=== PATIENT | male | born 1955 | race Caucasian/White ===

== ENCOUNTER 2016-11-15 11:20 | Emergency (ER) | payer OTHER, MEDICAID ==
[2016-11-15 11:32] VITALS: BMI 26.6
--- NOTE | 2016-11-15 11:43 | DR.GENAD ---
HPI - PCP Primary Care Physician: lee santos - HPI Comment HPI Comment: WOKE UP THIS AM AND TOOK HIS BLOOD PRESSURE MED. BLOOD PRESSURE ELEVATED STILL. TOOK 1/2 PILL OF HIS METOPROLOL. BP STILL ELEVATED AND WAS ELEVATED IN ED ALSO. LOWER BACK PAIN, CHRONIC, SLIGHTLY WORSE TODAY.SLIGHT HEADACHE PRESENT. - Complaint/Symptoms Chief Complaint Doctors Comments: ELEVATED BLOOD PRESSURE. Chief Complaint:: patient stated he woke up and took half of his bp med cause of his bp being high. 1 hour later he took another half. he stated his bp at home was 197/100 - Nurses notes reviewed Nurses Notes Review: Yes - Source History Provided: Patient - Mode of Arrival Mode of Arrival: Ambulatory - Timing Onset of Chief Complaint: 11/15/16 Came on: Suddenly - Duration Duration: Constant Duration: Hours - Severity Severity: Moderate PMH - PMH Past Medical History: Yes Past Medical History: Coronary Artery Disease, Dyslipidemia, GERD, Hypertension Past Surgical History: Yes Surgical History: CABG/Valve Surgery, Cholecystectomy - Family History History of Family Medical Conditions: Yes Family Medical History: Diabetes Mellitus, Cancer, [place], Coronary Artery Disease, Hypertension - Social History Does patient currently use any type of tobacco product: No Have you used tobacco products in the last 12 months: No Type of Tobacco Use: None Does any household member use tobacco: Yes Alcohol Use: Rarely Do you use any recreational Drugs:: No Lives With: Family Lives Where: Home - infectious screening In the last 2 months have you had wt loss of >10#?: NO Have you had fever, night sweats or hemotysis?: No Have you traveled outside the country in the last 6 months?: No Isolation: Standard ROS - Review of Systems Constitutional: No Symptoms Reported Eyes: No Symptoms Reported ENTM: Nose Discharge, Nose Congestion. negative: Ear Pain, Throat Pain Respiratoy: Non-Productive Cough Cardiovascular: No Symptoms Reported Gastrointestinal/Abdominal: No Symptoms Reported Genitourinary: No Symptoms Reported Neurological: Headache Musculoskeletal: Back Pain Integumentary: No Symptoms Reported Hematologic/Lymphatic: No Symptoms Reported Endocrine: No Symptoms Reported All Other Systems: Reviewed and Negative PE - Vital Signs Vitals: Temperature 98.6 F Pulse Rate [Right Brachial] 61 Pulse Rate 67 Respiratory Rate 20 Blood Pressure [Right Arm] 147/83 Blood Pressure 177/103 O2 Sat by Pulse Oximetry 100 - General Limitations: No Limitations General Appearance: Alert - Head Head Exam: Normal Inspection - Eyes Eye exam: Normal Appearance - ENT ENT Exam: Normal External Ear Exam External Ear Exam: Normal External Inspection TM/Canal Exam: Bilateral Normal Nose Exam: Normal Nose Exam Mouth Exam: Normal Inspection Throat Exam: Normal Inspection - Neck Neck Exam: Trachea Midline - Chest Chest Inspection: Symmetric Chest Wall Rise - Respiratory Respiratory Exam: Normal Lung Sounds Bilat Respiratory Exam: Bilateral Clear to Auscultation - Cardiovascular Cardiovascular Exam: Regular Rate, Normal Rhythm, Normal Heart Sounds - Abdominal Exam Abdominal Exam: Normal Inspection - Extremities Extremities Exam: Normal Inspection - Back Back Exam: Paraspinal Tenderness - Neurologic Neurological Exam: Alert, Oriented X3 - Psychiatric Psychiatric Exam: Anxious - Skin Skin Exam: Normal Color MDM - Differential Diagnosis Differential Diagnosis: HYPERTENSION Course - Treatment Treatment: SEE ORDERS - Reevaluation 1st: Improved (IMPROVE WITH MEDS IN ED.) - Education/Counseling Education/Counseling: Patient, Education Educated On: Treatment, Diagnosis, Needs for Follow Up - Diagnosis Discharge Problem: Hypertension Qualifiers: Hypertension type: essential hypertension Qualified Code(s): I10 - Essential ( primary) hypertension - Discharge Plan Disposition: 01 HOME, SELF-CARE Condition: Stable Prescriptions: Clonidine HCl [CATAPRES 0.1 MG TAB *] 0.1 mg PO BID PRN #10 tab PRN Reason: Hypertension - Follow ups/Referrals Follow ups/Referrals: Lee Santos [Primary Care Provider] - 11/17/16 - Instructions Instructions: Hypertension Additional Instructions: RETURN TO ED IF WORSE.
[2016-11-15] MEDS ORDERED: TORADOL 60 MG VIAL IM ONE (11:52)
[2016-11-15] MEDS ORDERED: TORADOL 60 MG VIAL ONE (11:57)
[2016-11-15] MEDS ORDERED: NIFEDIPINE CAP 10 MG PO ONE (13:14)
[2016-11-15 14:14] VITALS: BP 147/83
== END 2016-11-15 14:19 | disposition home or self-care (01) ==
LOC: ER 11:20
DX: I10 Essential (primary) hypertension (principal)
CPT/HCPCS: 96372; 99282; J1885

== ENCOUNTER → 2016-11-24 | Outpatient (CLI) | payer OTHER, MEDICAID ==
[2016-11-15 14:14] VITALS: BP 147/83
--- NOTE | 2016-11-24 18:04 | CT ---
STUDY: CT PARANASAL SINUSES WITHOUT CONTRAST HISTORY: Chronic maxillary sinusitis. Headaches for 6 weeks. Comparison: None. Technique: Multiple axial images of the paranasal sinuses were obtained without the administration o f IV contrast. Coronal and sagittal reformats were performed and reviewed. Automated exposure contr ol (AEC) was utilized to adjust the MA and/or kV. Findings: Axial images: There is mild mucosal thickening in both maxillary sinuses. There is mild mucosal thic kening in several ethmoid air cells and in the frontal recesses bilaterally. The frontal sinus and s phenoid sinus are predominately clear. No air-fluid levels are identified. There is no evidence of o steoneogenesis. The retro antral fat is clear. The nasal cavity is within normal limits. There is na viji septal spur to the right. The nasal bone is intact. Reformatted images: The ethmoid roofs are symmetric. The lamina papyracea is intact bilaterally. The re is no evidence of orbital blowout. The ostiomeatal units are predominantly clear. The patient is edentulous. Mastoid air cells and middle ear cavities are predominately clear. IMPRESSION: 1. Mild mucosal thickening in the maxillary sinuses as described. No evidence of acute sinusitis at this time. 2. Normal appearing mastoid air cells and middle ear cavities bilaterally. Reported By:
== END ==
LOC: RAD 14:50
PROVIDERS: ATTEND Psychiatry & Neurology Neurology
DX: J32.0 Chronic maxillary sinusitis (principal)
CPT/HCPCS: 70486

== ENCOUNTER → 2017-01-21 | Outpatient (CLI) | payer OTHER, MEDICAID ==
[~2017-01-21] MED LIST: NS 250 ML IV 250 ML IV ONE
[2017-01-21 09:21] LABS: CREATININE 1.28 mg/dL (0.70-1.30)
--- NOTE | 2017-01-22 11:21 | CT ---
HISTORY: Carotid atherosclerosis Study: CT angiography of the head Comparison: Sinus CT 11/24/2016 Technique: Multiple axial images of the head obtained before and after the administration of IV contrast using CTA protocol. 3D reconstructions were performed utilizing radial maximum intensity projection imagi ng.Dose reduction techniques including Automated Exposure Control (AEC) and adjustment of mA and kV were utilized. Findings: Non contrasted CT exam demonstrates normal appearance of the brain parenchyma for patient's age with out acute hemorrhage, mass, midline shift or abnormal extra-axial fluid collection. The ventricles a re normal. CTA phase of the exam shows no evidence of significant arterial stenosis or aneurysm. The re are 2 developmental venous anomalies (venous angiomas) present in the right frontal lobe seen on axial image 20, coronal image 16, and sagittal images 31 and 33. No arterial vascular malformation i s seen. There is a origin to the right posterior cerebral artery. Vertebrobasilar system appea rs normal. Partially visualized atherosclerotic plaque is seen in distal ICAs bilaterally. The carotid bifurcat ions were not imaged . There is scattered plaque in the cavernous carotid segments without high-grad e stenosis or aneurysm identified. The soft tissues and osseous structures are unremarkable. The vis ualized paranasal sinuses are clear. IMPRESSION: 1. No evidence of aneurysm or significant intracranial stenosis. 2. 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 Reported By:
== END ==
LOC: RAD 08:39
PROVIDERS: ATTEND Psychiatry & Neurology Neurology
DX: I65.23 Occlusion and stenosis of bilateral carotid arteries (principal)
CPT/HCPCS: 36415; 70496; 82565; 84520; A4222

== ENCOUNTER 2017-11-29 09:29 | Emergency (ER) | payer OTHER, MEDICAID ==
[2017-11-29] MEDS ORDERED: LOPRESSOR INJ 5 MG AMP ONE (09:47)
[2017-11-29] MEDS ORDERED: NITROSTAT SL ONE (09:48)
[2017-11-29] MEDS ORDERED: NITROSTAT SL PRN (09:52)
[2017-11-29] MEDS ORDERED: LOPRESSOR INJ 5 MG AMP IVP ONE (09:52)
[2017-11-29] MEDS ORDERED: NS 1000 ML 1,000 ML ONE (10:00)
[2017-11-29 10:01] LABS: BASOPHILS % (AUTO) 0.7 % (0.2-1.0); EOSINOPHILS # (AUTO) 0.1 x10^3/uL (0.0-0.2); HEMATOCRIT 40.2 % (42.0-54.0); HEMOGLOBIN 13.9 g/dL (13.5-18.0); LYMPHOCYTES # (AUTO) 2.3 X10^3/uL (1.3-2.9); LYMPHOCYTES % (AUTO) 32.5 % (21.0-51.0); MEAN CORPUSCULAR HEMOGLOBIN 30.7 pg (27.0-34.0); MEAN CORPUSCULAR HGB CONC 34.6 g/dL (33.0-35.0); MEAN CORPUSCULAR VOLUME 88.8 fL (80.0-100.0); MEAN PLATELET VOLUME 6.7 fL (7.4-11.0); MONOCYTES # (AUTO) 0.5 x10^3/uL (0.3-0.8); MONOCYTES % (AUTO) 6.6 % (0.0-13.0); NEUTROPHILS # (AUTO) 4.2 x10^3/uL (2.2-4.8); NEUTROPHILS % (AUTO) 59.2 % (42.0-75.0); PLATELET COUNT 288 X10^3/uL (150.0-450.0); RED BLOOD COUNT 4.52 X10^6/uL (4.7-6.0); RED CELL DISTRIBUTION WIDTH 13.5 % (11.6-16.5); WHITE BLOOD COUNT 7.1 X10^3/uL (3.6-10.0)
--- NOTE | 2017-11-29 10:01 | DR.GENAD ---
HPI - PCP Primary Care Physician: Aris - Complaint/Symptoms Chief Complaint Doctors Comments: Chesst pain onset about 4 hrs. ago. It described this as feeling like ingestion. He some some Pepto and rested. LOCATION WAS IN THE CETER OF THE CHEST WITH RADIATION TO HIS LEFT SHOULDER. There was no SOB, diaphoresis, nausea or vommiting. He also had aken 2 baby Aspirins. Chief Complaint:: "chest pain since this morning hurting in chest and down left side" - Nurses notes reviewed Nurses Notes Review: Yes - Source History Provided: Patient - Mode of Arrival Mode of Arrival: Ambulatory - Timing Onset of Chief Complaint: 11/29/17 PMH - PMH Past Medical History: Yes Past Medical History: Coronary Artery Disease, Dyslipidemia, GERD, Hypertension Past Surgical History: Yes Surgical History: CABG/Valve Surgery, Cholecystectomy - Family History History of Family Medical Conditions: Yes Family Medical History: Diabetes Mellitus, Cancer, [place], Coronary Artery Disease, Hypertension - Social History Does patient currently use any type of tobacco product: No Have you used tobacco products in the last 12 months: No Type of Tobacco Use: None Does any household member use tobacco: No Alcohol Use: None Do you use any recreational Drugs:: No Lives With: Family Lives Where: Home - infectious screening In the last 2 months have you had wt loss of >10#?: NO Have you had fever, night sweats or hemotysis?: No Have you traveled outside the country in the last 6 months?: No Isolation: Standard ROS - Review of Systems Constitutional: No Symptoms Reported Eyes: No Symptoms Reported ENTM: No Symptoms Reported Respiratoy: No Symptoms Reported Cardiovascular: Chest Pain. negative: No Symptoms Reported, Edema, Palpitations , Syncope, Cyanosis, Skin Mottling Gastrointestinal/Abdominal: No Symptoms Reported Genitourinary: No Symptoms Reported Neurological: No Symptoms Reported Musculoskeletal: No Symptoms Reported Integumentary: No Symptoms Reported Hematologic/Lymphatic: No Symptoms Reported Endocrine: No Symptoms Reported Psychiatric: No Symptoms Reported All Other Systems: Reviewed and Negative PE - Vital Signs Vitals: Temperature 98 F Pulse Rate [Left Radial] 55 Pulse Rate 66 Respiratory Rate 18 Blood Pressure [Right Arm] 120/74 Blood Pressure 176/98 O2 Sat by Pulse Oximetry 100 - General Limitations: No Limitations General Appearance: Alert, In No Apparent Distress - Head Head Exam: Normal Inspection - Eyes Eye exam: Normal Appearance - ENT ENT Exam: Normal Exam Nose Exam: Normal Nose Exam Mouth Exam: Normal Inspection - Neck Neck Exam: Normal Inspection - Chest Chest Inspection: Normal Inspection, Symmetric Chest Wall Rise - Respiratory Respiratory Exam: Normal Lung Sounds Bilat - Cardiovascular Cardiovascular Exam: Regular Rate, Normal Rhythm, +S1, +S2 - Abdominal Exam Abdominal Exam: Normal Inspection, Normal Bowel Sounds, Soft - Extremities Extremities Exam: Normal Inspection - Back Back Exam: Normal Inspection - Neurologic Neurological Exam: Alert, Oriented X3 - Psychiatric Psychiatric Exam: Normal Affect, Normal Mood - Skin Skin Exam: Warm, Dry, Intact, Normal Color Course - Reevaluation 1st: Improved 2nd: Improved 3rd: Resolved - Education/Counseling Education/Counseling: Patient, Family, Education, Counseling Educated On: Treatment, Diagnosis, Prognosis, Needs for Follow Up ROR - Labs Reviewed Result Diagrams: 11/29/17 09:49 11/29/17 09:49 Laboratory: WBC 7.1 X10^3/uL (3.6-10.0) 11/29/17 09:49 RBC 4.52 X10^6/uL (4.7-6.0) L 11/29/17 09:49 Hgb 13.9 g/dL (13.5-18.0) 11/29/17 09:49 Hct 40.2 % (42.0-54.0) L 11/29/17 09:49 MCV 88.8 fL (80.0-100.0) 11/29/17 09:49 MCH 30.7 pg (27.0-34.0) 11/29/17 09:49 MCHC 34.6 g/dL (33.0-35.0) 11/29/17 09:49 RDW 13.5 % (11.6-16.5) 11/29/17 09:49 Plt Count 288 X10^3/uL (150.0-450.0) 11/29/17 09:49 MPV 6.7 fL (7.4-11.0) L 11/29/17 09:49 Neut % (Auto) 59.2 % (42.0-75.0) 11/29/17 09:49 Lymph % (Auto) 32.5 % (21.0-51.0) 11/29/17 09:49 Grainger % (Auto) 6.6 % (0.0-13.0) 11/29/17 09:49 Eos % (Auto) 1.0 % (0.9-2.9) 11/29/17 09:49 Baso % (Auto) 0.7 % (0.2-1.0) 11/29/17 09:49 Neut # (Auto) 4.2 x10^3/uL (2.2-4.8) 11/29/17 09:49 Lymph # (Auto) 2.3 X10^3/uL (1.3-2.9) 11/29/17 09:49 Grainger # (Auto) 0.5 x10^3/uL (0.3-0.8) 11/29/17 09:49 Eos # (Auto) 0.1 x10^3/uL (0.0-0.2) 11/29/17 09:49 Baso # (Auto) 0.0 X10^3/uL (0.0-0.1) 11/29/17 09:49 Absolute Nucleated RBC 0.0 /100WBC 11/29/17 09:49 INR Target Range - 11/29/17 09:49 INR 1.00 (0.8-1.3) 11/29/17 09:49 APTT 38.0 SECONDS (22.9-36.5) H 11/29/17 09:49 PTT Comment - 11/29/17 09:49 D-Dimer 328 ng/mL (0-400) 11/29/17 09:49 Sodium 137 mmol/L (136-145) 11/29/17 09:49 Corrected Sodium 137 mmol/L (136-145) 11/29/17 09:49 Potassium 3.7 mmol/L (3.5-5.1) 11/29/17 09:49 Chloride 104 mmol/L (98-107) 11/29/17 09:49 Carbon Dioxide 23.9 mmol/L (21-32) 11/29/17 09:49 BUN 12 mg/dL (7-18) 11/29/17 09:49 Creatinine 1.33 mg/dL (0.70-1.30) H 11/29/17 09:49 Est GFR (MDRD) Af Amer > 60 (>60) 11/29/17 09:49 Est GFR (MDRD) Non-Af 58 (>60) L 11/29/17 09:49 Glucose 119 mg/dL (65-99) H 11/29/17 09:49 Calcium 9.7 mg/dL (8.5-10.1) 11/29/17 09:49 Corrected Calcium TNP 11/29/17 09:49 Magnesium 2.4 mg/dL (1.7-2.9) 11/29/17 09:49 Total Bilirubin 0.60 mg/dL (0.2-1.0) 11/29/17 09:49 AST 36 Units/L (15-37) 11/29/17 09:49 ALT 43 Units/L (12-78) 11/29/17 09:49 Alkaline Phosphatase 116 Units/L (46-116) 11/29/17 09:49 Creatine Kinase 266 Units/L (39-308) 11/29/17 09:49 CK-MB (CK-2) 3.3 ng/mL (0-4.0) 11/29/17 09:49 CK/CKMB % Calc 1.2 % (<4) 11/29/17 09:49 Troponin I 0.28 ng/mL (0-1.5) 11/29/17 09:49 B-Natriuretic Peptide 55.7 pg/mL (0-79) 11/29/17 09:49 Total Protein 8.2 g/dL (6.4-8.2) 11/29/17 09:49 Albumin 4.1 g/dL (3.4-5.0) 11/29/17 09:49 Globulin 4.1 g/dL (2.5-4.5) 11/29/17 09:49 Albumin/Globulin Ratio 1.0 Ratio (1.1-2.1) L 11/29/17 09:49 H. pylori IgG Antibody Negative (NEGATIVE) 11/29/17 09:49 - XRAY XRAY Interpreted by: Self (CXR: NAD) - EKG Rate: 84 [place]: Normal Rhythm: NSR Block: None Hypertrophy: None ST: Normal - Diagnosis Discharge Problem: Chest pain - Discharge Plan Disposition: ADMITTED INPATIENT Condition: Stable - Follow ups/Referrals Follow ups/Referrals: NFD,None [Primary Care Provider] - 3 days - Instructions Instructions: Acute Pain, Adult
--- NOTE | 2017-11-29 10:05 | RAD ---
Indication: Chest pain Exam: Portable chest Comparison: 08/25/2014 Findings: The heart is normal. The pulmonary vessels are normal. The lungs are mildly hyperinflated. Postop changes are seen along the mediastinum and sternum. No consolidation or effusion is seen. Ther e is overlying EKG lead artifact. Impression: Overlying EKG lead artifact otherwise, stable with no acute abnormality seen. Reported By:
[2017-11-29] MEDS: NS 1000 ML 1,000 ML IV SCH ×3 (10:07→20:15)
[2017-11-29 10:14] LABS: B-TYPE NATRIURETIC PEPTIDE 55.7 pg/mL (0-79)
[2017-11-29 10:17] LABS: BLOOD UREA NITROGEN 12 mg/dL (7-18); CALCIUM 9.7 mg/dL (8.5-10.1); CARBON DIOXIDE 23.9 mmol/L (21-32); CHLORIDE 104 mmol/L (98-107); COR NA(FOR HYPERGLY) 137 mmol/L (136-145); CREATININE 1.33 mg/dL (0.70-1.30); SODIUM 137 mmol/L (136-145); TROPONIN I 0.28 ng/mL (0-1.5); eGFR BLACK RACES > 60 (>60); eGFR NON BLACK RACES 58 (>60)
[2017-11-29 10:21] LABS: ALANINE AMINOTRANSFERASE 43 Units/L (12-78); ALBUMIN 4.1 g/dL (3.4-5.0); ALKALINE PHOSPHATASE 116 Units/L (46-116); ASPARTATE AMINO TRANSFERASE 36 Units/L (15-37); CKMB % 1.2 % (<4); CREATINE KINASE 266 Units/L (39-308); CREATINE KINASE MB 3.3 ng/mL (0-4.0); MAGNESIUM 2.4 mg/dL (1.7-2.9); TOTAL PROTEIN 8.2 g/dL (6.4-8.2)
[2017-11-29] MEDS ORDERED: ASPIRIN 81 MG CHEWTAB ONE (11:21)
[2017-11-29] MEDS ORDERED: HEPARIN SODIUM IN D5W 25,000 UNITS/500 ML BAG IV PRN (11:22)
[2017-11-29] MEDS ORDERED: ASPIRIN 81 MG CHEWTAB PO ONE (11:45)
[2017-11-29] MEDS ORDERED: PLAVIX PO SCH (12:00)
[2017-11-29] MEDS ORDERED: HEPARIN SODIUM INJ 5000 UNITS IVP ONE (12:35)
[2017-11-29 13:23] VITALS: BMI 25.8
[2017-11-29] MEDS: MORPHINE SULFATE INJ 2 MG INJ IVP PRN ×2 (14:25→18:10)
[2017-11-29 16:32] LABS: TROPONIN I 0.4 ng/mL (0-1.5)
[2017-11-29 16:34] LABS: CREATINE KINASE MB 4.6 ng/mL (0-4.0)
[2017-11-29] MEDS ORDERED: KLONOPIN TAB 1 MG PO PRN (18:53)
[2017-11-29] MEDS ORDERED: NORCO 7.5/325 MG TAB PO PRN (18:56)
[2017-11-29] MEDS: ZETIA TAB 10 MG PO SCH ×2 (19:47→20:17)
[2017-11-29] MEDS ORDERED: CATAPRES-TTS-2 TD SCH (20:00)
[2017-11-29 20:11] VITALS: BP 139/75
[2017-11-29] MEDS ORDERED: PATIENT'S HOME MEDICATION PO SCH (21:00)
[2017-11-29] MEDS ORDERED: CHECK PATCH XX SCH (21:00)
[2017-11-30] MEDS ORDERED: ASPIRIN EC 81 MG PO SCH (09:00)
[2017-11-30] MEDS ORDERED: FLONASE NASAL SPRAY ENOSTRIL SCH (09:00)
[2017-11-30] MEDS ORDERED: NORVASC TAB 10 MG PO SCH (09:00)
[2017-11-30] MEDS ORDERED: ZyrTEC TAB 10 MG PO SCH (09:00)
[2017-11-30] MEDS ORDERED: NexIUM PO SCH (09:00)
[2017-11-30] MEDS ORDERED: ASPIRIN PO SCH (09:00)
== END 2017-11-29 20:06 | disposition short-term general hospital (02) ==
LOC: ER 09:38 → ICU 11:08
PROVIDERS: ADMIT Internal Medicine; ATTEND Nurse Practitioner Family
DX: R07.89 Other chest pain (principal); I25.10 Atherosclerotic heart disease of native coronary artery without angina pectoris; E78.2 Mixed hyperlipidemia; K21.9 Gastro-esophageal reflux disease without esophagitis; I10 Essential (primary) hypertension; Z79.1 Long term (current) use of non-steroidal anti-inflammatories (NSAID)
CPT/HCPCS: 36415; 71045; 80053; 82550; 82553; 83735; 83880; 84484; 85025; 85378; 85610; 85730; 86677; 93005; 93010; 96365; 96367; 96374; 99284; A4222; G0378; J1644; J2270; J3490

== ENCOUNTER 2022-03-21 11:15 | Observation (INO) ==
--- NOTE | 2022-03-21 11:45 | DR.GENAD ---
HPI Time Seen Time Seen by Provider: 03/21/22 11:43 PCP Primary Care Physician: DAREK COVINGTON Complaint/Symptoms Chief Complaint Doctors Comments: LEFT CHEST PAIN AND DYSPHAGIA FOR 3 DAYS AFTER EATING PORK CHOP AND CHOKING ON IT. HE STATES THAT HE THREWUP THE PORK CHOP BUT HAS HAD DYSPHAGIA AFTERWARKS. HAS HISTORY OF CABG BUT DID NOT TAKE ANY NTG TO SEE IF IT WOULS HELP HIS CHEST DISCOMFORT. Chief Complaint:: PT STATES THAT THURSDAY HE GOT CHOKED ON A PIECE OF PORK CHOP AND THREW IT BACK UP AND SINCE THEN HE HAS HAD DIFFICULTY SWALLOWING AND IF HE DOES SWALLOW ANYTHING HE THROWS IT BACK UP. PT ALSO STATES THAT NOW WHEN HE BENDS OVER HE FEELS LIKE HE WILL PASS. PT C/O CONSTANT PRESSURE IN THE EPIGASTRIC AREA. 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 Family History History of Family Medical Conditions: Yes Family Medical History: Diabetes Mellitus, Cancer, [place], Coronary Artery Disease, Heart Failure and Hypertension Family Medical History Comment: CVA,DVT Social History Does patient currently use any type of tobacco product: Yes Have you used tobacco products in the last 12 months: Yes Type of Tobacco Use: Cigarettes Does any household member use tobacco: No Alcohol Use: Occasionally Do you use any recreational Drugs:: No Lives With: Family Lives Where: Home Travel Risk Coronavirus risk:travel/contact w/high risk person: No Has patient experienced Coronavirus symptoms: No Infectious screening In the last 2 months have you had wt loss of >10#?: NO Have you had fever, night sweats or hemotysis?: No Have you traveled outside the country in the last 6 months?: No Isolation: Standard ROS Review of Systems Constitutional: Other (FEELING OF SOMETHING LODGED IN THROAT,NAUSEA AND VOMITING.) Eyes: No Symptoms Reported ENTM: No Symptoms Reported Respiratoy: No Symptoms Reported Cardiovascular: No Symptoms Reported Gastrointestinal/Abdominal: Nausea and Vomiting Genitourinary: No Symptoms Reported Neurological: No Symptoms Reported Musculoskeletal: No Symptoms Reported Integumentary: No Symptoms Reported Hematologic/Lymphatic: No Symptoms Reported Endocrine: No Symptoms Reported Psychiatric: No Symptoms Reported PE Vital Signs Vitals: Temperature 97.9 F Pulse Rate 73 Respiratory Rate 20 Blood Pressure [Left Arm] 139/75 Blood Pressure [Right Arm] 120/74 Blood Pressure 128/61 O2 Sat by Pulse Oximetry 97 General Limitations: No Limitations General Appearance: In Distress (MODERATE DISTRESS) Head Head Exam: Normal Inspection Eyes Eye exam: Normal Appearance, PERRL and EOMI ENT ENT Exam: Normal Exam External Ear Exam: Normal External Inspection TM/Canal Exam: Bilateral: Normal Nose Exam: Normal Nose Exam Mouth Exam: Normal Inspection Throat Exam: Normal Inspection Neck Neck Exam: Normal Inspection Respiratory Respiratory Exam: Normal Lung Sounds Bilat Cardiovascular Cardiovascular Exam: Regular Rate and Normal Rhythm Abdominal Exam Abdominal Exam: Normal Inspection, Normal Bowel Sounds and Soft Extremities Extremities Exam: Normal Inspection and Full ROM Back Back Exam: Normal Inspection and Full ROM Neurologic Neurological Exam: Alert and Oriented X3 Psychiatric Psychiatric Exam: Normal Affect and Normal Mood Skin Skin Exam: Warm and Dry MDM Differential Diagnosis Differential Diagnosis: ESOPHOGEAL OBSTRUCTION COURSE Treatment Treatment: PATIENT HAD INITIAL CHEST XRAY THAT SHOWED A POSSIBLE ATELECTASIS IN THE HILAR AREA VS PNEUMONIA BUT HE CONTINUESD TO HAVE NAUSEA AND VOMITING . CT OF CHEST WAS DONE THAT SHOWED A 3CM OBSTRUCTION AT ESOPHAGEAL -GASTRIC JUNCTION. PATIENT HAD ALREADY BEEN GIVEN IMG OF GLUCAGON SQ WITHOUT RELIEF OF SYMPTOMS. CONTACT WAS MADE WITH DR GARZA AND HE STATED TO REFER THE PATIENT TO OBSERVATION AND HE WOULD DO AND EGD ON THE PATIENT TOMORROW IF HE HAD NOT RELAXED ENOUGH TO SWALLOW THE OBSTRUCTION. THE PATIENT WAS MADE AWARE OF THE INTENT AND AGREED TO THE OBSERVATION. THE UTILIZATION REVIEW WAS CALLED AND AND OBSERVATION WAS APPROVED. ROR Labs Reviewed Laboratory Results Reviewed?: Yes Result Diagrams: 03/21/22 12:03 03/21/22 12:03 Laboratory: WBC 6.7 X10^3/uL (3.6-10.0) 03/21/22 12:03 RBC 4.59 X10^6/uL (4.7-6.0) L 03/21/22 12:03 Hgb 13.2 g/dL (13.5-18.0) L 03/21/22 12:03 Hct 38.7 % (42.0-54.0) L 03/21/22 12:03 MCV 84.3 fL (80.0-100.0) 03/21/22 12:03 MCH 28.8 pg (27.0-34.0) 03/21/22 12:03 MCHC 34.2 g/dL (33.0-35.0) 03/21/22 12:03 RDW 17.4 % (11.6-16.5) H 03/21/22 12:03 Plt Count 320 X10^3/uL (150.0-450.0) 03/21/22 12:03 MPV 6.8 fL (7.4-11.0) L 03/21/22 12:03 Neut % (Auto) 71.7 % (42.0-75.0) 03/21/22 12:03 Lymph % (Auto) 20.9 % (21.0-51.0) L 03/21/22 12:03 Henry % (Auto) 6.5 % (0.0-13.0) 03/21/22 12:03 Eos % (Auto) 0.2 % (0.9-2.9) L 03/21/22 12:03 Baso % (Auto) 0.7 % (0.2-1.0) 03/21/22 12:03 Neut # (Auto) 4.8 x10^3/uL (2.2-4.8) 03/21/22 12:03 Lymph # (Auto) 1.4 X10^3/uL (1.3-2.9) 03/21/22 12:03 Henry # (Auto) 0.4 x10^3/uL (0.3-0.8) 03/21/22 12:03 Eos # (Auto) 0.0 x10^3/uL (0.0-0.2) 03/21/22 12:03 Baso # (Auto) 0.0 X10^3/uL (0.0-0.1) 03/21/22 12:03 Absolute Nucleated RBC 0.0 /100WBC 03/21/22 12:03 APTT 36.6 SECONDS (22.9-36.5) H 03/21/22 12:03 PTT Comment - 03/21/22 12:03 Sodium 137 mmol/L (136-145) 03/21/22 12:03 Corrected Sodium TNP 03/21/22 12:03 Potassium 3.5 mmol/L (3.5-5.1) 03/21/22 12:03 Chloride 100 mmol/L (98-107) 03/21/22 12:03 Carbon Dioxide 23.9 mmol/L (21-32) 03/21/22 12:03 BUN 31 mg/dL (7-18) H 03/21/22 12:03 Creatinine 2.44 mg/dL (0.70-1.30) H 03/21/22 12:03 Est GFR (MDRD) Af Amer 34 (>60) L 03/21/22 12:03 Est GFR (MDRD) Non-Af 28 (>60) L 03/21/22 12:03 Glucose 102 mg/dL (65-99) H 03/21/22 12:03 Calcium 10.4 mg/dL (8.5-10.1) H 03/21/22 12:03 Corrected Calcium TNP 03/21/22 12:03 Total Bilirubin 0.80 mg/dL (0.2-1.0) 03/21/22 12:03 AST 25 Units/L (15-37) 03/21/22 12:03 ALT 23 Units/L (12-78) 03/21/22 12:03 Alkaline Phosphatase 71 Units/L (46-116) 03/21/22 12:03 Creatine Kinase 158 Units/L (39-308) 03/21/22 12:03 Troponin I High Sens 11.2 ng/L (4.0-60.0) 03/21/22 12:03 Total Protein 8.1 g/dL (6.4-8.2) 03/21/22 12:03 Albumin 4.5 g/dL (3.4-5.0) 03/21/22 12:03 Globulin 3.6 g/dL (2.5-4.5) 03/21/22 12:03 Albumin/Globulin Ratio 1.3 Ratio (1.1-2.1) 03/21/22 12:03 SARS CoV-2 RNA Rapid RENAN Negative (NEGATIVE) 03/21/22 17:38 Opioid Opioid Risk Tool Age (Edmundo box if 16-45): No History of Preadolescent Sexual Abuse: No Total: 0 Total Score Risk Category: Low Risk Copyright: Conrado JONES predicting aberrant behaviors Discharge Plan Diagnosis Discharge Problem: Acute renal insufficiency, Distal esophageal obstruction due to foreign body Discharge Plan Patient Disposition: 09 ADMITTED INPATIENT Condition: Stable Orders to Discharge Patient Discharge Orders: Transfer (Routine); Ordered 03/21/22 Ordered By: Kyle Deras
[2022-03-21] MEDS ORDERED: NITROSTAT SL PRN (11:53)
[2022-03-21] MEDS ORDERED: ASPIRIN ONE (11:58)
[2022-03-21] MEDS ORDERED: NITROSTAT ONE (11:58)
[2022-03-21] MEDS ORDERED: ATIVAN 20 MG/10 ML VIAL ONE (12:10)
[2022-03-21] MEDS ORDERED: ASPIRIN 81 MG CHEWTAB ONE (12:10)
[2022-03-21] MEDS ORDERED: ZOFRAN INJ 4 MG VIAL ONE ×2 (12:13→15:19)
[2022-03-21 12:18] LABS: BASOPHILS % (AUTO) 0.7 % (0.2-1.0); EOSINOPHILS % (AUTO) 0.2 % (0.9-2.9); HEMATOCRIT 38.7 % (42.0-54.0); HEMOGLOBIN 13.2 g/dL (13.5-18.0); LYMPHOCYTES # (AUTO) 1.4 X10^3/uL (1.3-2.9); LYMPHOCYTES % (AUTO) 20.9 % (21.0-51.0); MEAN CORPUSCULAR HEMOGLOBIN 28.8 pg (27.0-34.0); MEAN CORPUSCULAR HGB CONC 34.2 g/dL (33.0-35.0); MEAN CORPUSCULAR VOLUME 84.3 fL (80.0-100.0); MEAN PLATELET VOLUME 6.8 fL (7.4-11.0); MONOCYTES # (AUTO) 0.4 x10^3/uL (0.3-0.8); MONOCYTES % (AUTO) 6.5 % (0.0-13.0); NEUTROPHILS # (AUTO) 4.8 x10^3/uL (2.2-4.8); NEUTROPHILS % (AUTO) 71.7 % (42.0-75.0); RED BLOOD COUNT 4.59 X10^6/uL (4.7-6.0); RED CELL DISTRIBUTION WIDTH 17.4 % (11.6-16.5); WHITE BLOOD COUNT 6.7 X10^3/uL (3.6-10.0)
[2022-03-21] MEDS ORDERED: ATIVAN INJ 2 MG VIAL IVP ONE ×2 (12:19→22:50)
[2022-03-21] MEDS: ZOFRAN INJ 4 MG VIAL IVP ONE ×2 (12:21→15:22)
[2022-03-21 12:31] LABS: ALANINE AMINOTRANSFERASE 23 Units/L (12-78); ALBUMIN 4.5 g/dL (3.4-5.0); ALKALINE PHOSPHATASE 71 Units/L (46-116); ASPARTATE AMINO TRANSFERASE 25 Units/L (15-37); BLOOD UREA NITROGEN 31 mg/dL (7-18); CALCIUM 10.4 mg/dL (8.5-10.1); CARBON DIOXIDE 23.9 mmol/L (21-32); CHLORIDE 100 mmol/L (98-107); CREATINE KINASE 158 Units/L (39-308); CREATININE 2.44 mg/dL (0.70-1.30); SODIUM 137 mmol/L (136-145); TOTAL PROTEIN 8.1 g/dL (6.4-8.2); eGFR NON BLACK RACES 28 (>60)
--- NOTE | 2022-03-21 12:35 | RAD ---
HISTORYCHEST PAIN, DYSPHAGIASTUDYCHEST, 1 VIEWCOMPARISONCT chest from 06/20/2021.TECHNIQUEAP chest, 2 images.FINDINGSStatus post median sternotomy and CABG. Cardiac and mediastinal contours are within normal limits. No consolidation or segmental lung collapse. No definite pleural effusion or pneumothorax.IMPRESSIONNo acute pulmonary process.Electronically signed by: Ricardo Rosenbaum (Mar 21, 2022 12:34:12)
[2022-03-21] MEDS ORDERED: ASPIRIN 81 MG CHEWTAB PO SCH (13:00)
[2022-03-21] MEDS ORDERED: NS 1,000 ML IV 1,000 ML IV ONE (13:18)
[2022-03-21] MEDS ORDERED: NS 1,000 ML IV 1,000 ML ONE (13:19)
[2022-03-21] MEDS ORDERED: ZOFRAN INJ 4 MG VIAL IVP ONE (15:22)
[2022-03-21] MEDS ORDERED: PHENERGAN INJ 25 MG IM ONE ×2 (15:52→15:56)
[2022-03-21] MEDS ORDERED: GLUCAGEN SC ONE ×2 (16:29→22:49)
[2022-03-21] MEDS ORDERED: GLUCAGEN ONE (16:30)
--- NOTE | 2022-03-21 16:54 | CT ---
HISTORYSTATES THAT THURSDAY HE GOT CHOKED ON A PIECE OF PORK CHOP AND THREW IT BACK UP AND SINCE THEN HE HAS HAD DIFFICULTY SWALLOWING AND IF HE DOES SWALLOW ANYTHING HE THROWS IT BACK UP.STUDYCHEST W/O CONCOMPARISONChest CT 06/20/2021TECHNIQUEMultiple CT axial images of the chest were obtained without IV contrast. Coronal and sagittal images were reconstructed. Dose reduction techniques included Automated Exposure Control (AEC) and adjustment of mA and kV.FINDINGSThere is a food bolus in the lower esophagus which measures about 3 cm located proximal to the GE junction. The middle and upper esophagus has minimal fluid within it. The findings suggest a distal obstruction, possibly a stricture in the lower esophagus.There is no esophageal wall thickening or edema. No pneumomediastinum.The heart is normal in size. Atherosclerotic calcification is present in the coronary arteries.The pulmonary artery and aorta have a normal caliber. No mediastinal mass or significant lymphadenopathy.The thyroid has a normal size and configuration. No axillary mass or significant axillary lymphadenopathy is identified.The lungs are well inflated with no pneumonia or pleural effusion. There may be a few tiny lung nodules but these are stable when compared to the prior study.Limited views of the upper abdomen show no significant abnormality. Surgical clips are present in the gallbladder fossa from a cholecystectomy.Median sternotomy wires are present. No significant bone abnormality otherwise.IMPRESSION1. Esophageal findings suggesting relative obstruction of the lower esophagus; this with most often be due to a stricture2. No foreign body, pneumonia, or pneumomediastinumElectronically signed by: Jose Roberto Daniels (Mar 21, 2022 16:53:06)
[2022-03-21] MEDS ORDERED: ATIVAN INJ 2 MG VIAL IVP PRN (19:39)
[2022-03-21 19:57] VITALS: BMI 23.1
[2022-03-21] MEDS ORDERED: KLONOPIN TAB 1 MG PO SCH (21:00)
[2022-03-21] MEDS: NS 1,000 ML IV 1,000 ML IV SCH (22:45)
[2022-03-21] MEDS ORDERED: ZETIA TAB 10 MG PO SCH (23:00)
[2022-03-22] MEDS: PROTONIX INJ 40 MG VIAL IVP SCH ×2 (00:15→08:09)
[2022-03-22 05:40] LABS: BASOPHILS % (AUTO) 0.5 % (0.2-1.0); EOSINOPHILS # (AUTO) 0.1 x10^3/uL (0.0-0.2); EOSINOPHILS % (AUTO) 1.5 % (0.9-2.9); HEMATOCRIT 34.4 % (42.0-54.0); HEMOGLOBIN 11.8 g/dL (13.5-18.0); LYMPHOCYTES # (AUTO) 1.6 X10^3/uL (1.3-2.9); LYMPHOCYTES % (AUTO) 33.5 % (21.0-51.0); MEAN CORPUSCULAR HEMOGLOBIN 29.2 pg (27.0-34.0); MEAN CORPUSCULAR HGB CONC 34.2 g/dL (33.0-35.0); MEAN CORPUSCULAR VOLUME 85.3 fL (80.0-100.0); MEAN PLATELET VOLUME 6.8 fL (7.4-11.0); MONOCYTES # (AUTO) 0.4 x10^3/uL (0.3-0.8); MONOCYTES % (AUTO) 9.2 % (0.0-13.0); NEUTROPHILS # (AUTO) 2.7 x10^3/uL (2.2-4.8); NEUTROPHILS % (AUTO) 55.3 % (42.0-75.0); RED BLOOD COUNT 4.03 X10^6/uL (4.7-6.0); RED CELL DISTRIBUTION WIDTH 17.3 % (11.6-16.5); WHITE BLOOD COUNT 4.8 X10^3/uL (3.6-10.0)
[2022-03-22] MEDS: NS 1,000 ML IV 1,000 ML IV SCH (05:44)
[2022-03-22 05:58] LABS: ALANINE AMINOTRANSFERASE 19 Units/L (12-78); ALBUMIN 3.7 g/dL (3.4-5.0); ALKALINE PHOSPHATASE 61 Units/L (46-116); ASPARTATE AMINO TRANSFERASE 33 Units/L (15-37); BLOOD UREA NITROGEN 31 mg/dL (7-18); CALCIUM 9.4 mg/dL (8.5-10.1); CARBON DIOXIDE 26.3 mmol/L (21-32); CHLORIDE 105 mmol/L (98-107); CREATININE 1.92 mg/dL (0.70-1.30); SODIUM 141 mmol/L (136-145); eGFR NON BLACK RACES 37 (>60)
[2022-03-22] MEDS ORDERED: GLUCAGEN SC ONE (06:00)
[2022-03-22] MEDS ORDERED: D5 LR 1,000 ML 1,000 ML IV ONE (08:39)
[2022-03-22] MEDS ORDERED: ASPIRIN PO SCH (09:00)
[2022-03-22] MEDS ORDERED: DIPRIVAN VIAL 20 ML ONE (09:02)
[2022-03-22 12:02] VITALS: BP 170/84
--- NOTE | 2022-03-22 12:32 | RAD ---
HISTORYepigastric pains, vomittingSTUDYCHEST, PA/LAT [id number]/29/2022FINDINGSThe trachea is midline. The cardiac silhouette is unremarkable. Previous median sternotomy. Chronic interstitial lung changes. The lungs are clear without focal infiltrate or effusion. The bony thorax is unremarkable.IMPRESSIONChronic interstitial lung changes without acute airspace disease or CHF.Electronically signed by: JAC KUMAR (Mar 22, 2022 12:30:12)
[2022-03-22] MEDS ORDERED: PROTONIX INJ 40 MG VIAL IVP SCH (21:00)
[2022-03-23] MEDS ORDERED: PROTONIX INJ 40 MG VIAL IVP SCH (11:28)
== END 2022-03-22 13:25 | disposition left against medical advice (07) ==
LOC: MED/SURG 11:15 → ER 11:15 → MED/SURG 19:06
PROVIDERS: ADMIT Surgery; ATTEND Surgery
DX: I25.10 Atherosclerotic heart disease of native coronary artery without angina pectoris; Z20.822 Contact with and (suspected) exposure to COVID-19; Z53.29 Procedure and treatment not carried out because of patient's decision for other reasons; N28.9 Disorder of kidney and ureter, unspecified; F41.8 Other specified anxiety disorders; R79.1 Abnormal coagulation profile; T18.128A Food in esophagus causing other injury, initial encounter; R07.89 Other chest pain; E78.2 Mixed hyperlipidemia; K21.9 Gastro-esophageal reflux disease without esophagitis; I10 Essential (primary) hypertension; R13.11 Dysphagia, oral phase; X58.XXXA Exposure to other specified factors, initial encounter; K44.9 Diaphragmatic hernia without obstruction or gangrene; Y92.9 Unspecified place or not applicable